=== PATIENT | female | born 1985 | race Caucasian/White ===

== ENCOUNTER → 2017-05-19 | Outpatient (CLI) | payer OTHER ==
--- NOTE | 2017-05-19 20:23 | CT ---
EXAMINATION TYPE: CT abdomen pelvis w con DATE OF EXAM: 05/19/2017 COMPARISON: NONE HISTORY: Right side abdominal pain following tubal ligation sx x4 days ago. CT DLP: 552.8 mGycm Automated exposure control for dose reduction was used. TECHNIQUE: Helical acquisition of images was performed from the lung bases through the pelvis. CONTRAST: Performed with Oral Contrast and with IV Contrast, patient injected with 100 mL of Omnipaque 300. FINDINGS: The lung bases are clear of consolidation. There is no pleural effusion. There is a small pneumoperit oneum. The patient had recent tubal ligation surgery according to the history 4 days ago. Liver spleen pancreas gallbladder appear normal. Bile ducts are not dilated. There is no adrenal mass . Kidneys show satisfactory contrast opacification. There is no hydronephrosis. Ureters are not dilat ed. There is no retroperitoneal adenopathy. There is no ascites. I see no intestinal wall thickening. There are no dilated loops. There is mild free fluid in the cul-de-sac. Bladder distends smoothly. I see no pelvic mass. I see no bony destructive process. Uterus is retroverted. Appendix appears orestes l. IMPRESSION: THERE IS MILD FREE FLUID IN THE PELVIS THAT COULD RELATE TO RECENT SURGERY. NORMAL APPENDIX. TINY PNE UMOPERITONEUM CONSISTENT WITH RECENT SURGERY.
== END | disposition home or self-care (01) ==
LOC: RADCTMAIN 17:45
PROVIDERS: ATTEND Family Medicine
DX: K66.8 Other specified disorders of peritoneum (principal)
CPT/HCPCS: 74177; Q9967

== ENCOUNTER → 2019-09-02 | Outpatient (CLI) | payer OTHER ==
--- NOTE | 2019-09-03 09:03 | US ---
EXAMINATION TYPE: US transvaginal DATE OF EXAM: 09/02/2019 COMPARISON: NONE CLINICAL HISTORY: N92.0 FREQ MENSTRATION. Irregular menses, 7, para 3, history of tubal ligat ion TECHNIQUE: Transvaginal exam only per ordering physician. Date of LMP: 08/24/2019 EXAM MEASUREMENTS: Uterus: 8.1 x 5.4 x 4.1 cm Endometrial Stripe: 0.7 cm Right Ovary: 2.7 x 2.1 x 2.1 cm Left Ovary: 3.5 x 1.8 x 1.5 cm 1. Uterus: retroverted, heterogeneous, contour abnormality within the fundus with focal 0.7 x 0.7 cm probably uterine leiomyoma that may be subserosal or intramural. Additional fibroids are suspected a t the posterior myometrium as there is diffuse heterogeneity. 2. Endometrium: Trilaminar appearance, within normal limits of size. 3. Right Ovary: dominant follicle = 1.6 x 1.4 x 1.6cm 4. Left Ovary: wnl 5. Bilateral Adnexa: no free fluid 6. Posterior cul-de-sac: Trace amount of free fluid Cervix: multiple nabothian cysts. Distal cervix is not well seen. IMPRESSION: 1. Diffusely heterogenous myometrium with at least one probable uterine leiomyoma of the fundus measu ring 0.7 cm and may be subserosal creating slight contour defect of the fundus. Other smaller leiomyo mas are suspected. 2. Endometrial thickness is within normal limits in size. Note the distal cervix is not well visualiz ed and could be visualized by physical examination. Multiple nabothian cysts are noted. 3. Trace amount of free fluid, likely physiologic.
== END | disposition home or self-care (01) ==
LOC: RADUSWWP 16:47
PROVIDERS: ATTEND Family Medicine
DX: N88.8 Other specified noninflammatory disorders of cervix uteri (principal); R93.89 Abnormal findings on diagnostic imaging of other specified body structures
CPT/HCPCS: 76830

== ENCOUNTER → 2020-09-26 | Outpatient (CLI) | payer OTHER ==
--- NOTE | 2020-09-26 12:16 | US ---
EXAMINATION TYPE: US abdomen complete DATE OF EXAM: 09/26/2020 COMPARISON: CT 2017 CLINICAL HISTORY: R74.8 Abnormal Liver enzymes.. EXAM MEASUREMENTS: Liver Length: 17.4 cm Gallbladder Wall: 0.2 cm CBD: 0.3 cm Spleen: 9.7 cm Right Kidney: 10.6 x 4.4 x 5.2 cm Left Kidney: 9.5 x 5.3 x 5.1 cm Pancreas: visualized portions wnl, limited by overlying midline bowel gas Liver: measures in upper limits of normal, mildly heterogeneous Gallbladder: wnl Evidence for sonographic Muro's sign: no CBD: visualized portions wnl, limited by overlying bowel gas Spleen: wnl Right Kidney: wnl Left Kidney: wnl Upper IVC: wnl Abd Aorta: wnl The visualized liver is heterogeneous without worrisome mass or ductal dilatation. No new surrounding ascites. The intrahepatic portion of the IVC and visualized abdominal aorta are within normal limits . There is no evidence of cholelithiasis. Common bile duct is unremarkable. The visualized portion s of the pancreas are homogenous. The spleen is unremarkable. Kidneys are symmetric and free of hyd ronephrosis. No renal lesions are seen. IMPRESSION: Heterogeneous hyperechoic appearance of the liver could be on basis of mild diffuse fatty infiltratio n and/or underlying hepatocellular disease. Consider ultrasound elastography to further evaluate.
== END | disposition home or self-care (01) ==
LOC: RADUSWWP 10:50
PROVIDERS: ATTEND Family Medicine
DX: R93.2 Abnormal findings on diagnostic imaging of liver and biliary tract (principal); R74.8 Abnormal levels of other serum enzymes
CPT/HCPCS: 76700

== ENCOUNTER → 2021-02-01 | Outpatient (CLI) | payer OTHER ==
--- NOTE | 2021-02-01 16:24 | XR ---
EXAMINATION TYPE: XR chest 2V DATE OF EXAM: 02/01/2021 COMPARISON: NONE HISTORY: Cough TECHNIQUE: Frontal and lateral views of the chest are obtained. FINDINGS: There is no focal air space opacity, pleural effusion, or pneumothorax seen. The cardiac silhouette size is within normal limits. The osseous structures are intact, there is a spinal curva ture. IMPRESSION: No acute cardiopulmonary process.
== END ==
LOC: RADXRMAIN 10:42
PROVIDERS: ATTEND Family Medicine
DX: R05 Cough (principal)
CPT/HCPCS: 71046

== ENCOUNTER → 2024-08-31 | Outpatient (CLI) | payer OTHER ==
--- NOTE | 2024-08-31 14:09 | US ---
EXAMINATION TYPE: US pelvic complete DATE OF EXAM: 08/31/2024 COMPARISON: US 2019 CLINICAL INDICATION: Female, 39 years old with history of N92.0 EXCESS MENSTRU; Heavy irregular painf ul periods x 3 months TECHNIQUE: Grayscale imaging of the uterus. Transabdominal sonographic images of the pelvis were ac quired. Transvaginal sonographic images were medically necessary to better assess the following stewart griffin: endometrium & ovaries Date of LMP: Patient unsure EXAM MEASUREMENTS: Uterus: 9.9 x 5.7 x 6.5 cm Endometrial Stripe: 0.4 cm Right Ovary: 2.2 x 1.8 x 1.7 cm Left Ovary: 3.5 x 1.6 x 1.4 cm 1. Uterus: retroverted, bulky, heterogeneous, 2.1cm hypoechoic fibroid right lower uterine segment 2. Endometrium: appears wnl 3. Right Ovary: wnl 4. Left Ovary: wnl 5. Bilateral Adnexa: wnl 6. Posterior cul-de-sac: wnl IMPRESSION: 1. Retroverted fibroid uterus. 2. Endometrium within normal limits for thickness. [facility], , 08/31/2024 2:06 PM
== END | disposition home or self-care (01) ==
LOC: RADUSWWP 12:42
PROVIDERS: ATTEND Family Medicine
DX: N92.0 Excessive and frequent menstruation with regular cycle
CPT/HCPCS: 76830; 76856

== ENCOUNTER 2025-01-28 04:06 | Emergency (ER) | payer OTHER ==
--- NOTE | 2025-01-28 05:06 | ED ---
Psych HPI - General Source: police Mode of arrival: ambulatory - History of Present Illness MD Complaint: suicidal ideation -: hour(s) Quality: constant Improves With: none Worsens With: alcohol Context: significant life stressor <AmitaJay - Last Filed: 01/28/25 05:04> <Bridgett Horton - Last Filed: 01/29/25 15:28> - General Chief Complaint: Psychiatric Symptoms Stated Complaint: Petition Time Seen by Provider: 01/28/25 04:17 - History of Present Illness Initial Comments: Patient is a 40-year-old woman who is here to have psychiatric evaluation. Police were called because the patient had gone to [facility] and per report had texted a friend with messages that the friend thought indicated suicidality. (Jay Levi) - Related Data Home Medications Medication Instructions Recorded Confirmed Albuterol Inhaler [Ventolin Hfa 1 - 2 puff INHALATION Q6HR PRN 05/29/16 06/04/16 Inhaler] Aspirin [Adult Low Dose Aspirin EC] 81 mg PO DAILY 05/29/16 06/04/16 Previous Rx's Medication Instructions Recorded Ondansetron Odt [Zofran Odt] 4 mg PO Q8HR PRN #10 tab 01/16/25 Allergies Allergy/AdvReac Type Severity Reaction Status Date / Time codeine Allergy Nausea & Verified 01/28/25 04:15 Vomiting vancomycin Allergy Anaphylaxis Verified 01/28/25 04:15 Review of Systems ROS Other: All systems not noted in ROS Statement are negative. Respiratory: Denies: cough, dyspnea Cardiovascular: Denies: chest pain, palpitations Gastrointestinal: Reports: nausea, vomiting. Denies: abdominal pain, diarrhea Genitourinary: Denies: dysuria, hematuria Musculoskeletal: Denies: back pain Skin: Denies: rash Neurological: Denies: headache, weakness <AmitaJay - Last Filed: 01/28/25 05:04> ROS Other: All systems not noted in ROS Statement are negative. <Bridgett oHrton - Last Filed: 01/29/25 15:28> ROS Statement: Those systems with pertinent positive or pertinent negative responses have been documented in the HPI. Past Medical History Past Medical History: Asthma, Blood Disorder Additional Past Medical History / Comment(s): Lupus Anticoagulant History of Any Multi-Drug Resistant Organisms: None Reported, MRSA Date of last positivie culture/infection: 2009 MDRO Source:: low back Past Surgical History: Uterine Ablation Past Anesthesia/Blood Transfusion Reactions: No Reported Reaction Past Psychological History: Depression Smoking Status: Never smoker Past Alcohol Use History: Occasional Past Drug Use History: None Reported - Past Family History Father Family Medical History: Deep Vein Thrombosis (DVT) Sister(s) Family Medical History: Deep Vein Thrombosis (DVT) <Jay Levi - Last Filed: 01/28/25 05:04> General Exam Limitations: no limitations General appearance: alert, in no apparent distress, appears intoxicated Head exam: Present: atraumatic, normocephalic Eye exam: Present: normal appearance Neck exam: Present: normal inspection Respiratory exam: Present: normal lung sounds bilaterally. Absent: respiratory distress, wheezes, rales, rhonchi, stridor, accessory muscle use Cardiovascular Exam: Present: normal rhythm, tachycardia, normal heart sounds. Absent: systolic murmur, diastolic murmur, rubs, gallop GI/Abdominal exam: Present: soft. Absent: distended, tenderness, guarding, rebound, rigid, mass Extremities exam: Present: normal inspection, normal capillary refill. Absent: pedal edema, calf tenderness Back exam: Present: normal inspection. Absent: CVA tenderness (R), CVA tenderness (L) Neurological exam: Present: alert Psychiatric exam: Present: anxious. Absent: depressed, agitated, flat affect, homicidal ideation Skin exam: Present: warm, dry, intact, normal color. Absent: rash <Jay Levi - Last Filed: 01/28/25 05:04> Course Vital Signs 01/28/25 01/28/25 04:08 12:25 Temperature 98.2 F 98.0 F Pulse Rate 110 H 92 Respiratory 20 18 Rate Blood Pressure 136/89 129/78 O2 Sat by Pulse 97 98 Oximetry Medical Decision Making <Bridgett Horton - Last Filed: 01/29/25 15:28> - Medical Decision Making Was patient admitted / discharged? Hospital course, mention meds given and route, prescriptions, significant lab abnormalities, going to OR and other pertinent info. @ -Patient was evaluated by EPS. They deemed that she is safe to go home with a safety plan. Patient was agreeable to this. She denies suicidal ideations to me. Patient does fill out a safety plan was discharged in stable condition. She was provided resources to follow-up with Undiagnosed new problem with uncertain prognosis? @ -No Drug Therapy requiring intensive monitoring for toxicity (Heparin, Nitro, Insulin, Cardizem)? @ -No Were any procedures done? @ -No Diagnosis/symptom? @ -Acute depression Acute, or Chronic, or Acute on Chronic? @ -Acute Uncomplicated (without systemic symptoms) or Complicated (systemic symptoms)? @ -complicated Side effects of treatment? @ -No Exacerbation, Progression, or Severe Exacerbation? @ -No Poses a threat to life or bodily function? How? (Chest pain, [place], [place], pneumonia, PE, COPD, DKA, ARF, appy, cholecystitis, CVA, Diverticulitis, Homicidal, Suicidal, threat to staff... and all critical care pts) @ -No (Bridgett Horton) Disposition <Jay Levi - Last Filed: 01/28/25 05:04> Is patient prescribed a controlled substance at d/c from ED?: No Time of Disposition: 12:14 <Bridgett Horton - Last Filed: 01/29/25 15:28> Clinical Impression: Depression Disposition: HOME SELF-CARE Condition: Stable Instructions (If sedation given, give patient instructions): Depression (ED) Additional Instructions: Please follow-up with the referrals that you were provided or return for any new or worsening symptoms Referrals: None,Stated [Primary Care Provider] - 1-2 days
[2025-01-28 12:27] VITALS: BP 129/78; PULSE 92; RESP 18; TEMP 98
== END 2025-01-28 12:27 | disposition home or self-care (01) ==
LOC: EC 04:06
DX: F32.A Depression, unspecified (principal); Z88.5 Allergy status to narcotic agent; Z88.1 Allergy status to other antibiotic agents
CPT/HCPCS: 82075; 99285